=== PATIENT | female | born 2000 | race Caucasian/White ===

== ENCOUNTER 2024-10-26 14:47 | Emergency (ER) | payer MEDICAID ==
[2024-10-26 15:40] LABS: BASOPHILS ABSOLUTE AUTO 0.0 x10^3/uL (0.0-0.2); BASOPHILS PERCENT AUTO 0.3 % (0.2-1.2); EOSINOPHILS ABSOLUTE AUTO 0.1 x10^3/uL (0.0-0.5); EOSINOPHILS PERCENT AUTO 2.3 % (0.0-4.0); IMMATURE GRAN ABSOLUTE AUTO 0.01 x10^3/uL (0.00-0.07); IMMATURE GRAN PERCENT AUTO 0.20 % (0.00-0.43); LYMPHOCYTES ABSOLUTE AUTO 1.6 x10^3/uL (1.0-4.8); LYMPHOCYTES PERCENT AUTO 26.6 % (25.0-50.0); MONOCYTES ABSOLUTE AUTO 0.5 x10^3/uL (0.0-0.8); MONOCYTES PERCENT AUTO 8.2 % (2.0-11.0); NEUTROPHILS ABSOLUTE AUTO 3.8 x10^3/uL (1.8-7.7); NEUTROPHILS PERCENT AUTO 62.4 % (50.0-80.0); PLATELET COUNT,PLT 243 x10^3/uL (130-400); RED BLOOD CELL COUNT 4.12 x10^6/uL (4.00-5.50); WHITE BLOOD CELL COUNT,WBC 6.0 x10^3/uL (4.0-10.0)
[2024-10-26 15:57] LABS: INR 1.0 (0.9-1.1)
[2024-10-26 16:02] LABS: A/G RATIO 1.06; ALANINE AMINOTRANSFERASE,ALT 25.0 U/L (14-59); ASPARTATE AMNIOTRANSFERASE,AST 17.0 U/L (15-37); BILIRUBIN TOTAL 0.2 mg/dL (0.2-1.0); BLOOD UREA NITROGEN,BUN 13.0 mg/dL (7-18); CARBON DIOXIDE,CO2 27.0 mmol/L (21-32); CHLORIDE,CL 104.0 mmol/L (98-107); CREATININE 1.0 mg/dL (0.55-1.02); EST CRCL DRUG DOSING (CG) 70.52 mL/min; ESTIMATED GFR 80.0 mL/min (>=60); GLUCOSE RANDOM 148.0 mg/dL (70-99); POTASSIUM,K 3.9 mmol/L (3.5-5.1); PROTEIN TOTAL,TP 7.4 g/dL (6.4-8.2); SODIUM,NA 140.0 mmol/L (136-145)
== END 2024-10-26 16:22 | disposition home or self-care (01) ==
LOC: VM.ED 14:47
DX: N92.0 Excessive and frequent menstruation with regular cycle (principal); F17.210 Nicotine dependence, cigarettes, uncomplicated; Z88.5 Allergy status to narcotic agent; Z91.018 Allergy to other foods; Z79.899 Other long term (current) drug therapy
CPT/HCPCS: 36415; 80053; 81025; 85025; 85610; 99283; 99284